=== PATIENT | male | born 1990 | race American Indian/Alaskan Native ===

== ENCOUNTER 2016-09-19 08:21 | Emergency (ER) | payer SELFPAY ==
[2016-09-19] MEDS ORDERED: PERCOCET 5/325 PO ONE (09:40)
--- NOTE | 2016-09-19 09:40 | Emergency Department Report ---
HPI - General Chief Complaint: Dental/Oral Time Seen by Provider: 09/19/16 09:33 - HPI HPI: Patient here complaining of toothache for 2 days. He said he has an appointment with his dentist on this coming Monday but is tooth is hurting severely and he wants a medication until he can see his dentist on Monday. Patient reports that she is having pain to his left lower back tooth. Pain is 10 out of 10 and aching. Denies any facial swelling. Denies any nausea or vomiting. Denies any fever or chills. Patient has a history of elevated blood history of high blood pressure without taking medication. He also reports that he took [id number] naproxen and Anbesol without relief of toothache. ED Past Medical Hx - Past Medical History Previous Medical History?: Yes Additional medical history: dental caries - Surgical History Past Surgical History?: No Additional Surgical History: wisdom tooth removed - Family History Family history: hypertension - Social History Smoking Status: Current Every Day Smoker Substance Use Type: Alcohol, Marijuana, Non Opiate Pain - Medications Home Medications: Home Medications Medication Instructions Recorded Confirmed Last Taken Type Acetaminophen/Codeine [Tylenol #3] 1 tab PO Q6H PRN #20 tab 09/19/16 Unknown Rx Amoxicillin [Amoxicillin TAB] 875 mg PO BID #20 tablet 09/19/16 Unknown Rx ED Review of Systems ROS: Stated complaint: SEVERE TOOTHACHE Other details as noted in HPI Comment: All other systems reviewed and negative Constitutional: denies: chills, fever ENT: dental pain. denies: ear pain, throat pain, congestion Respiratory: no symptoms reported Cardiovascular: denies: chest pain, palpitations, edema, syncope Gastrointestinal: denies: nausea, vomiting Musculoskeletal: denies: back pain, arthralgia Skin: denies: rash Neurological: denies: headache Physical Exam - Physical Exam Vital Signs: Vital Signs 09/19/16 08:32 Temperature 98.9 F Pulse Rate 77 Respiratory 20 Rate Blood Pressure 147/108 O2 Sat by Pulse 100 Oximetry Vital Signs 09/19/16 09/19/16 09/19/16 08:32 09:44 09:48 Temperature 98.9 F Pulse Rate 77 84 Respiratory 20 18 18 Rate Blood Pressure 147/108 Blood Pressure 144/100 [Left] O2 Sat by Pulse 100 100 Oximetry General: This is a 26-year-old male well-nourished well-developed in no acute distress. Physical Exam: Head: Normocephalic atraumatic Mouth: Moist, no pharyngeal exudate or erythema. Uvula is midline and oral airway is patent. No gingival enlargement. dental tenderness to tooth #18. No induration or erythema noted. Tooth #18 rate filling. Pt with dental caries. No facial swelling. No peritonsillar abscesses. Neck: Supple, no C-spine tenderness, no tracheal deviation. Nontender to palpate. no adenopathy Ears: Bilateral TMs pearly bethea.bilateral EAC without any redness swelling or drainage Eyes: Bilateral pupils equal and reactive to light, bilateral EOM intact. Bilateral sclera and conjunctiva without injection. Normal accommodation Nose: Mucosa moist, normal mucosa .maxillary and frontal sinus non-tender to palpate. Lungs: Clear to auscultate bilaterally no rhonchi wheezes or rales. Normal work of breathing extremity; No CCE. +2 pulses. No neurovascular compromise Cardiovascular: S1-S2, regular rate rhythm. No murmurs. Skin: clean Dry and intact no rash no lesions Psych: Normal mood and behavior ED Course Vital Signs 09/19/16 08:32 Temperature 98.9 F Pulse Rate 77 Respiratory 20 Rate Blood Pressure 147/108 O2 Sat by Pulse 100 Oximetry Vital Signs 09/19/16 09/19/16 09/19/16 08:32 09:44 09:48 Temperature 98.9 F Pulse Rate 77 84 Respiratory 20 18 18 Rate Blood Pressure 147/108 Blood Pressure 144/100 [Left] O2 Sat by Pulse 100 100 Oximetry - Reevaluation(s) Reevaluation #1: 09/19/16 10:28 Patient received Percocet 5/325 2 tablets for pain and he reports relief of tooth ache. ED Medical Decision Making - Medical Decision Making ED course: Patient given Percocet 5/325 mg 2 tablets emergency room for toothache which relieved this pain. The patient that he has to follow up with his dentist as scheduled for this Monday for evaluation and treatment of toothache. I also discussed with patient that his blood pressure is elevated and he needs to be on medication. Patient does have a primary care physician so I told them to call and schedule an appointment and in the meantime keep a log of his blood pressure to take to primary care physician visit. Patient was understanding of the diagnosis and discharge instruction. Discharged home with prescription for Tylenol No. 3 and amoxicillin. Critical care attestation.: If time is entered above; I have spent that time in minutes in the direct care of this critically ill patient, excluding procedure time. ED Disposition Clinical Impression: Toothache, Dental caries, Encounter for smoking cessation counseling Hypertension Qualifiers: Hypertension type: essential hypertension Qualified Code(s): I10 - Essential ( primary) hypertension Disposition: DISCHARGED TO HOME OR SELFCARE Is pt being admited?: No Does the pt Need Aspirin: No Condition: Stable Instructions: Hypertension (ED), Dental Caries (ED), Toothache (ED), Low Sodium Diet (ED), DASH Eating Plan (ED), How to Stop Smoking (ED) Additional Instructions: Please keep appointment with her dentist on Monday for management of dental caries and toothache. Take medication as prescribed. To not operate heavy machinery or drive motor vehicle while taking Tylenol 3 as this medication will cause drowsiness. Please keep a log of your blood pressure intake to primary care physician's visit for evaluation and treatment of high blood pressure Prescriptions: Acetaminophen/Codeine [Tylenol #3] 1 tab PO Q6H PRN #20 tab PRN Reason: Toothache Amoxicillin [Amoxicillin TAB] 875 mg PO BID #20 tablet Referrals: PRIMARY CARE,MD [Primary Care Provider] - 3-5 Days Your, Dentist [Other] - 09/23/16 Forms: Work/School Release Form(ED)
[2016-09-19 09:45] VITALS: BP 144/100
== END 2016-09-19 10:48 | disposition home or self-care (01) ==
LOC: ED 08:21
DX: K02.9 Dental caries, unspecified (principal); I10 Essential (primary) hypertension; Z71.6 Tobacco abuse counseling; F17.200 Nicotine dependence, unspecified, uncomplicated; F12.10 Cannabis abuse, uncomplicated
CPT/HCPCS: 99282